=== PATIENT | female | born 1940 | race Caucasian/White ===

== ENCOUNTER 2023-05-12 14:46 | Outpatient (AMB) | payer MEDICARE, SELFPAY ==
[2023-05-12 15:04] VITALS: BP 120/60; PULSE 74; O2SAT 95; BMI 37.8
--- NOTE | 2023-05-12 15:04 | MHC.OFFVIS ---
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 The patient is an 82 year woman with a known cardiac history and chronic kidney disease who has a diagnosis of COPD. The patient has had issues with shortness of breath. She complains of shortness of breath lying flat suggesting of orthopnea. The patient also describes symptoms of shortness of breath waking up suggesting of pressure small nocturnal dyspnea. She does take diuretics and recently she has had to increase her Lasix to be able to help her with those symptoms. The patient also was given diagnosis of COPD. I did look at her PFTs that she had in January 2023 without any evidence of obstruction although she does have a mild restriction an a mild diffusion impairment. During the office visit we did go for a 6 minutes walk test. The patient did desaturate down to 93% but did not qualify for oxygen she does have a rescue inhaler but she does not see any significant improvement. At this point she may and may not have obstructive airway disease will go ahead and give her any longer acting inhaler to see if we can provide her some relief with breathing. However rest after a month she does not see relief she can stop the inhaler. Will also request an overnight oximetry to see if she needs oxygen at nighttime. And the patient will continue with rescue inhaler as needed. The patient also had a CT scan of the chest done back in 2019 which demonstrated areas of ground-glass opacities of unclear etiology. Indeed pneumonitis could be also resulting in some shortness of breath. Will plan to repeat her chest x-ray to assess for any active process. [facility] Medical History (Updated 05/12/23 @ 22:19 by Carl Osman MD) COPD (chronic obstructive pulmonary disease) CHF (congestive heart failure) Dyspnea Social History (Updated 05/12/23 @ 15:14 by MIKE Walker) Patient Tobacco Use Status: Never used Tobacco Review of Systems Const Denies fever(s) Eyes Denies change in vision ENT Reports nasal congestion Card Reports leg edema, Reports dyspnea and Reports dyspnea on exertion Resp Reports dyspnea, Reports dyspnea on exertion and Denies wheezing GI Denies abdominal pain Musc Reports abnormal gait and Reports limited range of motion Skin/Breast Denies rash Neuro Reports abnormal gait Robert/Lymph Denies lymphadenopathy Aller/Immun Denies wheezing Physical Exam Vital Signs: Last Vital Signs Pulse 74 05/12/23 15:04 BP 120/60 05/12/23 15:04 Pulse Ox 95 05/12/23 15:04 Oxygen Delivery Method Room Air 05/12/23 15:04 BMI result Body Mass Index 37.8 Const General: comfortable HEENT Head: Yes normocephalic Neck Neck: Yes supple Chest Chest palpation & inspection: normal inspection of the chest Resp Effort & Inspection: normal respiratory effort Auscultation: no rales, no rhonchi, no wheezes and diminished lung sounds Cardio Rate: regular rate Rhythm: regular rhythm Heart sounds: S1 normal heart sound present and S2 normal heart sound present GI Palpation (GI): Soft to palpation Skin General skin exam: no rashes or lesions noted Extrem General: No clubbing, No cyanosis and Yes edema Assessment & Plan Assessment & Plan (1) CHF (congestive heart failure): Code(s): I50.9 - Heart failure, unspecified Qualifiers: Heart failure type: systolic Heart failure chronicity: chronic Qualified Code(s): I50.22 - Chronic systolic (congestive) heart failure (2) Dyspnea: Code(s): R06.00 - Dyspnea, unspecified Qualifiers: Dyspnea type: dyspnea on exertion Qualified Code(s): R06.09 - Other forms of dyspnea (3) COPD (chronic obstructive pulmonary disease): Comment: no definitive obstruction on recent PFTs Code(s): J44.9 - Chronic obstructive pulmonary disease, unspecified Qualifiers: COPD type: chronic bronchitis Chronic bronchitis type: simple Qualified Code(s): J41.0 - Simple chronic bronchitis Plan CXR overnight oximetry start Bevespi BID MASOUD as needed diuresis as tolerated F/U 3-4 months Orders: Orders XR chest 2V Today I50.9 - Heart failure, unspecified, R06.00 - Dyspnea, unspecified Overnight Pulse Oximetry Today Medications: New glycopyrrolate-formoterol 9-4.8 mcg (Bevespi Aerosphere) 2 puffs inhalation Q12H 30 days 10.7 grams 11RF Coding Level of Care Code New Pt Level 4 (84422) Diagnoses Chronic systolic congestive heart failure I50.22 Heart failure type: systolic Heart failure chronicity: chronic Dyspnea on exertion R06.09 Dyspnea type: dyspnea on exertion Simple chronic bronchitis J41.0 COPD type: chronic bronchitis Chronic bronchitis type: simple Time Spent (min) 40
== END 2023-05-12 15:43 | disposition home or self-care (01) ==
PROVIDERS: PCP Internal Medicine; Referring Provider Internal Medicine; Visit Provider Hospitalist
DX: I50.22 Chronic systolic (congestive) heart failure (principal); R06.09 Other forms of dyspnea; J41.0 Simple chronic bronchitis
CPT/HCPCS: 99204

== ENCOUNTER → 2023-05-12 14:46 | Outpatient (BNVA) | payer SELFPAY | PROVIDERS: Visit Provider Hospitalist ==

== ENCOUNTER 2023-09-14 13:04 | Outpatient (AMB) | payer MEDICARE, MEDICAID, SELFPAY ==
[2023-09-14 13:13] VITALS: PULSE 69; O2SAT 94; BMI 37.7
--- NOTE | 2023-09-14 13:13 | A.OFFVIS_ITS ---
Intake Vital Signs 09/14/23 13:13 Height 5 ft 4 in Weight 219 lb 12.814 oz BMI 37.7 Pulse 69 Pulse Source Pulse Oximeter Pulse Oximetry (%) 94 Oxygen Delivery Method Room Air Intake Visit Reasons: COPD Validation Intern Required: No Allergies celecoxib [From Celebrex] Allergy (Verified 09/14/23 13:15) Palpitations ticagrelor [From Brilinta] Adverse Reaction (Severe, Verified 09/14/23 13:15) Difficulty Breathing HPI HPI Comments History of Present Illness Details The patient is an 83 year woman with a known cardiac history and chronic kidney disease who has a diagnosis of COPD. The patient has had issues with shortness of breath. She complains of shortness of breath lying flat s uggesting of orthopnea. The patient also describes symptoms of shortness of breath waking up suggesting of pressure small nocturnal dyspnea. She does take diuretics and recently she has had to increase her Lasix to be able to help her with those symptoms. The patient also was given diagnosis of COPD. I did look at her PFTs that she had in January 2023 without any evidence of obstruction although she does have a mild restriction an a mild diffusion impairment. During the office visit we did go for a 6 minutes walk test. The patient did desaturate down to 93% but did not qualify for oxygen she does have a rescue inhaler but she does not see any significant improvement. At this point she may and may not have obstructive airway disease will go ahead and give her any longer acting inhaler to see if we can provide her some relief with breathing. However rest after a month she does not see relief she can stop the inhaler. Will also request an overnight oximetry to see if she needs oxygen at nighttime. And the patient will continue with rescue inhaler as needed. The patient also had a CT scan of the chest done back in 2019 which demonstrated areas of ground- glass opacities of unclear etiology. Indeed pneumonitis could be also resulting in some shortness of breath. Will plan to repeat her chest x-ray to assess for any active process. 09/14/2023 the patient is here for pulmon justin the patient is still distant productive cough. The mucus is whitish in color. Moderate severity. She does have issues with urinary incontinence specially when she is coughing so therefore makes it very hard for her. We did get a sputum culture in the office consent to the laboratory for further analysis. The patient also states that she does cough while eating therefore she may have a component of microaspiration. She has been under Bevespi inhaler but has not been very helpful for her. We talked about considering adding inhaled corticosteroid to help her with the chronic bronchitis component. We did review her last chest x- ray that she had back in the fall demonstrating some interstitial changes. Her daughter is with her. They are concerned there may be a familial component. Because her daughter is also having respiratory issues and her sister also had respiratory issues. At this point will going to start her on azithromycin for her chronic bronchitis. She will take it 3 times a week. I did encourage her to get an EKG after starting the medication to make sure that her cardiac intervals are within normal limits. She will continue taking the medication for 6-8 weeks. Will follow-up afterwards. If she continues to have symptoms she can always call we can add an inhaled corticosteroid to her regimen. In the meantime we did send sputum culture and will wait for the results. As far as chest PT will provide her with an Acapella valve for her to be able to cough her secretions easier. [facility] Medical History (Updated 09/14/23 @ 20:56 by Carl Osman MD) COPD (chronic obstructive pulmonary disease) CHF (congestive heart failure) Dyspnea Social History (Updated 05/12/23 @ 15:14 by MIKE Walker) Patient Tobacco Use Status: Never used Tobacco Review of Systems Const Denies fever(s) Eyes Denies change in vision ENT Reports nasal congestion Card Reports leg edema and Reports dyspnea on exertion Resp Reports chest congestion, Reports cough, Reports dyspnea on exertion and Denies wheezing GI Denies abdominal pain Musc Reports abnormal gait and Reports limited range of motion Skin/Breast Denies rash Neuro Reports abnormal gait Robert/Lymph Denies lymphadenopathy Aller/Immun Denies wheezing Physical Exam Vital Signs: Last Vital Signs Pulse 69 09/14/23 13:13 Pulse Ox 94 09/14/23 13:13 Oxygen Delivery Method Room Air 09/14/23 13:13 BMI result Body Mass Index 37.7 Const General: comfortable HEENT Head: Yes normocephalic Neck Neck: Yes supple Chest Chest palpation & inspection: normal inspection of the chest Resp Effort & Inspection: normal respiratory effort Auscultation: no rales, no rhonchi, no wheezes and diminished lung sounds Cardio Rate: regular rate Rhythm: regular rhythm Heart sounds: S1 normal heart sound present and S2 normal heart sound present GI Palpation (GI): Soft to palpation Skin General skin exam: no rashes or lesions noted Extrem General: No clubbing, No cyanosis and Yes edema Assessment & Plan Assessment & Plan (1) Dyspnea: Code(s): R06.00 - Dyspnea, unspecified Qualifiers: Dyspnea type: dyspnea on exertion Qualified Code(s): R06.09 - Other forms of dyspnea (2) COPD (chronic obstructive pulmonary disease): Comment: no definitive obstruction on recent PFTs Code(s): J44.9 - Chronic obstructive pulmonary disease, unspecified Qualifiers: COPD type: chronic bronchitis Chronic bronchitis type: mixed simple and mucopurulent Qualified Code(s): J41.8 - Mixed simple and mucopurulent chronic bronchitis (3) CHF (congestive heart failure): Code(s): I50.9 - Heart failure, unspecified Qualifiers: Heart failure chronicity: chronic Heart failure type: systolic Qualified Code(s): I50.22 - Chronic systolic (congestive) heart failure Plan continue Bevespi BID consider adding ICS start Azithromycin MWF EKG while on macrolide therapy MASOUD as needed diuresis as tolerated F/U 2 months Orders: Orders Sputum Cult + Gram stain Today J44.9 - Chronic obstructive pulmonary disease, unspecified ECG 12 lead EKG Today J44.9 - Chronic obstructive pulmonary disease, unspecified Medications: New azithromycin Take 1 tablet on Thursday/Thursday/Thursday 250 mg PO 3XW 28 days 12 tabs 1RF K21.9 - Gastro-esophageal reflux disease without esophagitis Coding Level of Care Code Est Pt Level 4 (21059) Diagnoses Dyspnea on exertion R06.09 Dyspnea type: dyspnea on exertion Mixed simple and mucopurulent chronic bronchitis J41.8 COPD type: chronic bronchitis Chronic bronchitis type: mixed simple and mucopurulent Chronic systolic congestive heart failure I50.22 Heart failure chronicity: chronic Heart failure type: systolic Time Spent (min) 18
== END 2023-09-14 13:48 | disposition home or self-care (01) ==
PROVIDERS: PCP Internal Medicine; Visit Provider Hospitalist
DX: R06.09 Other forms of dyspnea (principal); J41.8 Mixed simple and mucopurulent chronic bronchitis; I50.22 Chronic systolic (congestive) heart failure
CPT/HCPCS: 99214

== ENCOUNTER 2023-09-14 13:04 | Outpatient (REF) | payer MEDICARE, SELFPAY | END 2023-09-14 13:05 | disposition home or self-care (01) | LOC: HO.LNP 13:04 | PROVIDERS: PCP Internal Medicine; Visit Provider Hospitalist | DX: J44.9 Chronic obstructive pulmonary disease, unspecified (principal); R06.09 Other forms of dyspnea; I50.22 Chronic systolic (congestive) heart failure | CPT/HCPCS: 87070; 87205; 99212 ==

== ENCOUNTER → 2023-09-30 11:06 | Outpatient (REF) | payer MEDICARE, MEDICAID, SELFPAY ==
--- NOTE | 2023-09-30 11:12 | ECG_ITS ---
Test Reason : COPD Blood Pressure : / mmHG Vent. Rate : 071 BPM Atrial Rate : 071 BPM P-R Int : 208 ms QRS Dur : 102 ms QT Int : 464 ms P-R-T Axes : 090 010 071 degrees QTc Int : 504 ms Normal sinus rhythm Prolonged QT Abnormal ECG No previous ECGs available Referred By: Carl Osman Electronically Signed By:RUFINO GILBERT
== END ==
LOC: HO.CARD 11:06
PROVIDERS: PCP Internal Medicine; Visit Provider Hospitalist
DX: J44.9 Chronic obstructive pulmonary disease, unspecified (principal)
CPT/HCPCS: 93005

== ENCOUNTER → 2023-09-30 11:12 | Outpatient (BNV) | payer MEDICARE, MEDICAID, SELFPAY | PROVIDERS: PCP Internal Medicine; Visit Provider Internal Medicine | DX: J44.9 Chronic obstructive pulmonary disease, unspecified (principal) | CPT/HCPCS: 93010 ==

== ENCOUNTER 2023-11-26 09:24 | Outpatient (AMB) | payer MEDICARE, SELFPAY ==
[2023-11-26 09:28] VITALS: PULSE 77; O2SAT 96; BMI 36.7
--- NOTE | 2023-11-26 09:28 | MHC.OFFVIS ---
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 The patient has had issues with shortness of breath. She complains of shortness of breath lying flat suggesting of orthopnea. The patient also describes symptoms of shortness of breath waking up suggesting of pressure small nocturnal dyspnea. She does take diuretics and recently she has had to increase her Lasix to be able to help her with those symptoms. The patient also was given diagnosis of COPD. I did look at her PFTs that she had in January 2023 without any evidence of obstruction although she does have a mild restriction an a mild diffusion impairment. During the office visit we did go for a 6 minutes walk test. The patient did desaturate down to 93% but did not qualify for oxygen she does have a rescue inhaler but she does not see any significant improvement. At this point she may and may not have obstructive airway disease will go ahead and give her any longer acting inhaler to see if we can provide her some relief with breathing. However rest after a month she does not see relief she can stop the inhaler. Will also request an overnight oximetry to see if she needs oxygen at nighttime. And the patient will continue with rescue inhaler as needed. The patient also had a CT scan of the chest done back in 2019 which demonstrated areas of ground-glass opacities of unclear etiology. Indeed pneumonitis could be also resulting in some shortness of breath. Will plan to repeat her chest x-ray to assess for any active process. 09/14/2023 the patient is here for pulmonary the patient is still distant productive cough. The mucus is whitish in color. Moderate severity. She does have issues with urinary incontinence specially when she is coughing so therefore makes it very hard for her. We did get a sputum culture in the office consent to the laboratory for further analysis. The patient also states that she does cough while eating therefore she may have a component of microaspiration. She has been under Bevespi inhaler but has not been very helpful for her. We talked about considering adding inhaled corticosteroid to help her with the chronic bronchitis component. We did review her last chest x-ray that she had back in the fall demonstrating some interstitial changes. Her daughter is with her. They are concerned there may be a familial component. Because her daughter is also having respiratory issues and her sister also had respiratory issues. At this point will going to start her on azithromycin for her chronic bronchitis. She will take it 3 times a week. I did encourage her to get an EKG after starting the medication to make sure that her cardiac intervals are within normal limits. She will continue taking the medication for 6-8 weeks. Will follow-up afterwards. If she continues to have symptoms she can always call we can add an inhaled corticosteroid to her regimen. In the meantime we did send sputum culture and will wait for the results. As far as chest PT will provide her with an Acapella valve for her to be able to cough her secretions easier. 11/26/2023 the patient is here for a pulmonary follow-up visit. Recently she was hospitalized at [facility]. Apparently she was volume overloaded was treated for heart failure. In addition to that she was treated for COPD exacerbation. While she was there she did have a CTA back on 11/09/2023 which was personally by me. She had subcentimeter pulmonary nodules in addition to other areas of atelectasis. The patient also had an echocardiogram demonstrating moderate diastolic dysfunction. Explained her that that likely resulted in congestive heart failure. Currently she is monitoring closely her weight on a daily basis. She does have protocol she gained some weight call her doctor. She is also on diuretics which is reassuring. Overall she has doing a lot better with her salt intake. Reason why she is doing okay. We did go for brief walking oximetry the patient did desaturate down to the low 90s but she did not qualify for oxygen. She was supposed to have an overnight oximetry but she never had it. I will reorder this time will call her daughter. [facility] Medical History (Updated 11/26/23 @ 19:15 by Carl Osman MD) Pulmonary nodule COPD (chronic obstructive pulmonary disease) CHF (congestive heart failure) Dyspnea Social History (Updated 05/12/23 @ 15:14 by MIKE Walker) Patient Tobacco Use Status: Never used Tobacco Review of Systems Const Denies fever(s) Eyes Denies change in vision ENT Reports nasal congestion Card Reports leg edema and Reports dyspnea on exertion Resp Reports cough, Reports dyspnea on exertion and Denies wheezing GI Denies abdominal pain Musc Reports abnormal gait and Reports limited range of motion Skin/Breast Denies rash Neuro Reports abnormal gait Robert/Lymph Denies lymphadenopathy Aller/Immun Denies wheezing Physical Exam Vital Signs: Last Vital Signs Pulse 77 11/26/23 09:28 Pulse Ox 96 11/26/23 09:28 Oxygen Delivery Method Room Air 11/26/23 09:28 BMI result Body Mass Index 36.7 Const General: comfortable HEENT Head: Yes normocephalic Neck Neck: Yes supple Chest Chest palpation & inspection: normal inspection of the chest Resp Effort & Inspection: normal respiratory effort Auscultation: no rales, no rhonchi, no wheezes and diminished lung sounds Cardio Rate: regular rate Rhythm: regular rhythm Heart sounds: S1 normal heart sound present and S2 normal heart sound present GI Palpation (GI): Soft to palpation Skin General skin exam: no rashes or lesions noted Extrem General: No clubbing, No cyanosis and Yes edema Assessment & Plan Assessment & Plan (1) COPD (chronic obstructive pulmonary disease): Comment: no definitive obstruction on recent PFTs Code(s): J44.9 - Chronic obstructive pulmonary disease, unspecified Category: Medical Qualifiers: COPD type: chronic bronchitis Chronic bronchitis type: mixed simple and mucopurulent Qualified Code(s): J41.8 - Mixed simple and mucopurulent chronic bronchitis (2) Pulmonary nodule: Code(s): R91.1 - Solitary pulmonary nodule Category: Medical (3) CHF (congestive heart failure): Code(s): I50.9 - Heart failure, unspecified Category: Medical Qualifiers: Heart failure type: systolic Heart failure chronicity: chronic Qualified Code(s): I50.22 - Chronic systolic (congestive) heart failure (4) Dyspnea: Code(s): R06.00 - Dyspnea, unspecified Category: Medical Qualifiers: Dyspnea type: dyspnea on exertion Qualified Code(s): R06.09 - Other forms of dyspnea Plan continue Bevespi BID consider adding ICS Overnight oximetry on RA MASOUD as needed diuresis as tolerated daily weight We will discuss further imaging for the subcentemeter nodule ([facility] CT chest 11/2023) during the next visit. F/U 6 months Orders: Orders Overnight Pulse Oximetry Today J41.8 - Mixed simple and mucopurulent chronic bronchitis Coding Level of Care Code Est Pt Level 4 (13058) Diagnoses Mixed simple and mucopurulent chronic bronchitis J41.8 COPD type: chronic bronchitis Chronic bronchitis type: mixed simple and mucopurulent Pulmonary nodule R91.1 Chronic systolic congestive heart failure I50.22 Heart failure type: systolic Heart failure chronicity: chronic Dyspnea on exertion R06.09 Dyspnea type: dyspnea on exertion Time Spent (min) 17
== END 2023-11-26 10:02 | disposition home or self-care (01) ==
PROVIDERS: PCP Internal Medicine; Visit Provider Hospitalist
DX: J41.8 Mixed simple and mucopurulent chronic bronchitis (principal); R91.1 Solitary pulmonary nodule; I50.22 Chronic systolic (congestive) heart failure; R06.09 Other forms of dyspnea
CPT/HCPCS: 99214

== ENCOUNTER → 2023-11-26 09:24 | Outpatient (BNVA) | payer MEDICARE, SELFPAY | PROVIDERS: PCP Internal Medicine; Visit Provider Hospitalist | DX: J41.8 Mixed simple and mucopurulent chronic bronchitis (principal); R91.1 Solitary pulmonary nodule; I50.22 Chronic systolic (congestive) heart failure; R06.09 Other forms of dyspnea | CPT/HCPCS: 99212 ==

== ENCOUNTER 2024-05-30 15:27 | Outpatient (AMB) | payer MEDICARE, MEDICAID, SELFPAY ==
[2024-05-30 15:43] VITALS: BP 118/70; PULSE 76; O2SAT 94; BMI 37.4
--- NOTE | 2024-05-30 15:43 | A.OFFVIS_ITS ---
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 The patient has had issues with shortness of breath. She complains of shortness of breath lying flat suggesting of orthopnea. The patient also describes symptoms of shortness of breath waking up suggesting of pressure small nocturnal dyspnea. She does take diuretics and recently she has had to increase her Lasix to be able to help her with those symptoms. The patient also was given diagnosis of COPD. I did look at her PFTs that she had in January 2023 without any evidence of obstruction although she does have a mild restriction an a mild diffusion impairment. During the office visit we did go for a 6 minutes walk test. The patient did desaturate down to 93% but did not qualify for oxygen she does have a rescue inhaler but she does not see any significant improvement. At this point she may and may not have obstructive airway disease will go ahead and give her any longer acting inhaler to see if we can provide her some relief with breathing. However rest after a month she does not see relief she can stop the inhaler. Will also request an overnight oximetry to see if she needs oxygen at nighttime. And the patient will continue with rescue inhaler as needed. The patient also had a CT scan of the chest done back in 2019 which demonstrated areas of ground-glass opacities of unclear etiology. Indeed pneumonitis could be also resulting in some shortness of breath. Will plan to repeat her chest x-ray to assess for any active process. 09/14/2023 the patient is here for pulmonary the patient is still distant productive cough. The mucus is whitish in color. Moderate severity. She does have issues with urinary incontinence specially when she is coughing so therefore makes it very hard for her. We did get a sputum culture in the office consent to the laboratory for further analysis. The patient also states that she does cough while eating therefore she may have a component of microaspiration. She has been under Bevespi inhaler but has not been very helpful for her. We talked about considering adding inhaled corticosteroid to help her with the chronic bronchitis component. We did review her last chest x- ray that she had back in the fall demonstrating some interstitial changes. Her daughter is with her. They are concerned there may be a familial component. Because her daughter is also having respiratory issues and her sister also had respiratory issues. At this point will going to start her on azithromycin for her chronic bronchitis. She will take it 3 times a week. I did encourage her to get an EKG after starting the medication to make sure that her cardiac intervals are within normal limits. She will continue taking the medication for 6-8 weeks. Will follow-up afterwards. If she continues to have symptoms she can always call we can add an inhaled corticosteroid to her regimen. In the meantime we did send sputum culture and will wait for the results. As far as chest PT will provide her with an Acapella valve for her to be able to cough her secretions easier. 11/26/2023 the patient is here for a pulmonary follow-up visit. Recently she was hospitalized at [facility]. Apparently she was volume overloaded was treated for heart failure. In addition to that she was treated for COPD exacerbation. While she was there she did have a CTA back on 11/09/2023 which was personally by me. She had subcentimeter pulmonary nodules in addition to other areas of atelectasis. The patient also had an echocardiogram demonstrating moderate diastolic dysfunction. Explained her that that likely resulted in congestive heart failure. Currently she is monitoring closely her weight on a daily basis. She does have protocol she gained some weight call her doctor. She is also on diuretics which is reassuring. Overall she has doing a lot better with her salt intake. Reason why she is doing okay. We did go for brief walking oximetry the patient did desaturate down to the low 90s but she did not qualify for oxygen. She was supposed to have an overnight oximetry but she never had it. I will reorder this time will call her daughter. 05/30/2024 the patient is here for a pulmonary follow-up visit. The patient overall has been doing okay. She has been complaining of worsening cough for the last 2 weeks. Positive sick contacts. She is also having some dyspnea on exertion. The patient also has shortness of breath and she wakes up at nighttime. She did have an overnight oximetry back in December that demonstrates sig nificant hypoxia. I believe the patient did not want have any oxygen. Will go ahead and repeat the oxygen test if she does again requalify for oxygen at this point will emphasize the need for the oxygen. I am hopeful that she would be agreeable to it. The patient does continue with respiratory medicine but does not feel like the Bevespi is helping. She does not want to do any powder inhalers will switch over to Breztri. The patient will continue to use the Breztri 2 puffs twice a day. The patient also start a course of antibiotics treated for a bout of bronchitis specially with sick contacts. If the patient is no better she will call for an earlier assessment. Also to note she had a CT scan of the chest back in 11/21/2023 [facility] which I personally reviewed. The patient on subcentimeter pulmonary nodules that are stable. She also has some areas of mosaic pattern suggesting small airways disease. Otherwise the patient is without any other complaints. FORMERLY [facility] Medical History (Updated 11/26/23 @ 19:15 by Carl Osman MD) Pulmonary nodule COPD (chronic obstructive pulmonary disease) CHF (congestive heart failure) Dyspnea Social History (Updated 05/12/23 @ 15:14 by MIKE Walker) Patient Tobacco Use Status: Never used Tobacco Review of Systems Const Denies fever(s) Eyes Denies change in vision ENT Reports nasal congestion Card Reports leg edema and Reports dyspnea on exertion Resp Reports cough, Reports dyspnea on exertion and Denies wheezing GI Denies abdominal pain Musc Reports abnormal gait and Reports limited range of motion Skin/Breast Denies rash Neuro Reports abnormal gait Robert/Lymph Denies lymphadenopathy Aller/Immun Denies wheezing Physical Exam Vital Signs: Last Vital Signs Pulse 76 05/30/24 15:43 BP 118/70 05/30/24 15:43 Pulse Ox 94 05/30/24 15:43 Oxygen Delivery Method Room Air 05/30/24 15:43 BMI result Body Mass Index 37.4 Const General: comfortable HEENT Head: Yes normocephalic Neck Neck: Yes supple Chest Chest palpation & inspection: normal inspection of the chest Resp Effort & Inspection: normal respiratory effort Auscultation: no rales, no rhonchi, no wheezes and diminished lung sounds Cardio Rate: regular rate Rhythm: regular rhythm Heart sounds: S1 normal heart sound present and S2 normal heart sound present GI Palpation (GI): Soft to palpation Skin General skin exam: no rashes or lesions noted Extrem General: No clubbing, No cyanosis and Yes edema Assessment & Plan Assessment & Plan (1) COPD (chronic obstructive pulmonary disease): Comment: no definitive obstruction on recent PFTs Code(s): J44.9 - Chronic obstructive pulmonary disease, unspecified Category: Medical Qualifiers: COPD type: chronic bronchitis Chronic bronchitis type: mixed simple and mucopurulent Qualified Code(s): J41.8 - Mixed simple and mucopurulent chronic bronchitis (2) Pulmonary nodule: Code(s): R91.1 - Solitary pulmonary nodule Category: Medical (3) CHF (congestive heart failure): Code(s): I50.9 - Heart failure, unspecified Category: Medical Qualifiers: Heart failure chronicity: chronic Heart failure type: systolic Qualified Code(s): I50.22 - Chronic systolic (congestive) heart failure (4) Dyspnea: Code(s): R06.00 - Dyspnea, unspecified Category: Medical Qualifiers: Dyspnea type: dyspnea on exertion Qualified Code(s): R06.09 - Other forms of dyspnea Plan stop Bevespi BID start Breztri start Azithromycin Overnight oximetry on RA MASOUD as needed diuresis as tolerated daily weight F/U 6 months Orders: Orders Overnight Pulse Oximetry Today J41.8 - Mixed simple and mucopurulent chronic bronchitis Medications: New mlcpxqszex-obwybvwi-zcsvhjcyep 160-9-4.8 mcg/actuation (Breztri Aerosphere) 2 inhalations inhalation BID 10.7 grams 11RF azithromycin 500 mg PO DAILY 5 tabs 0RF 5 days Coding Level of Care Code Est Pt Level 4 (52380) Diagnoses Mixed simple and mucopurulent chronic bronchitis J41.8 COPD type: chronic bronchitis Chronic bronchitis type: mixed simple and mucopurulent Pulmonary nodule R91.1 Chronic systolic congestive heart failure I50.22 Heart failure chronicity: chronic Heart failure type: systolic Dyspnea on exertion R06.09 Dyspnea type: dyspnea on exertion Time Spent (min) 17
== END 2024-05-30 16:06 | disposition home or self-care (01) ==
PROVIDERS: PCP Internal Medicine; Visit Provider Hospitalist
DX: J41.8 Mixed simple and mucopurulent chronic bronchitis (principal); R91.1 Solitary pulmonary nodule; I50.22 Chronic systolic (congestive) heart failure; R06.09 Other forms of dyspnea
CPT/HCPCS: 99214

== ENCOUNTER → 2024-05-30 15:27 | Outpatient (BNVA) | payer MEDICARE, SELFPAY | PROVIDERS: PCP Internal Medicine; Visit Provider Hospitalist | DX: J41.8 Mixed simple and mucopurulent chronic bronchitis (principal); R91.1 Solitary pulmonary nodule; I50.22 Chronic systolic (congestive) heart failure; R06.09 Other forms of dyspnea | CPT/HCPCS: 99212 ==

== ENCOUNTER 2024-10-03 15:17 | Outpatient (AMB) | payer MEDICAID, SELFPAY ==
[2024-10-03 15:21] VITALS: BP 130/78; PULSE 80; O2SAT 92; BMI 38.2
--- NOTE | 2024-10-03 15:21 | A.OFFVIS_ITS ---
Vital Signs 10/03/24 15:21 Height 5 ft 4 in Weight 222 lb 10.67 oz BMI 38.2 BP 130/78 Blood Pressure Location Rt brachial Position Sitting Pulse 80 Pulse Source Pulse Oximeter Pulse Oximetry (%) 92 Oxygen Delivery Method Room Air Intake Visit Reasons: COPD Allergies celecoxib [From Celebrex] Allergy (Verified 10/03/24 15:25) Palpitations ticagrelor [From Brilinta] Adverse Reaction (Severe, Verified 10/03/24 15:25) Difficulty Breathing HPI Comments Details: The patient is an 84 year woman with a known cardiac history and chronic kidney disease who has a diagnosis of COPD. The patient has had issues with shortness of breath. She complains of shortness of breath lying flat suggesting of orthopnea. The patient also describes symptoms of shortness of breath waking up suggesting of pressure small nocturnal dyspnea. She does take diuretics and recently she has had to increase her Lasix to be able to help her with those symptoms. The patient also was given diagnosis of COPD. I did look at her PFTs that she had in January 2023 without any evidence of obstruction although she does have a mild restriction an a mild diffusion impairment. During the office visit we did go for a 6 minutes walk test. The patient did desaturate down to 93% but did not qualify for oxygen she does have a rescue inhaler but she does not see any significant improvement. At this point she may and may not have obstructive airway disease will go ahead and give her any longer acting inhaler to see if we can provide her some relief with breathing. However rest after a month she does not see relief she can stop the inhaler. Will also request an overnight oximetry to see if she needs oxygen at nighttime. And the patient will continue with rescue inhaler as needed. The patient also had a CT scan of the chest done back in 2019 which demonstrated areas of ground-glass opacities of unclear etiology. Indeed pneumonitis could be also resulting in some shortness of breath. Will plan to repeat her chest x-ray to assess for any active process. 09/14/2023 the patient is here for pulmonary the patient is still distant produ ctive cough. The mucus is whitish in color. Moderate severity. She does have issues with urinary incontinence specially when she is coughing so therefore makes it very hard for her. We did get a sputum culture in the office consent to the laboratory for further analysis. The patient also states that she does cough while eating therefore she may have a component of microaspiration. She has been under Bevespi inhaler but has not been very helpful for her. We talked about considering adding inhaled corticosteroid to help her with the chronic bronchitis component. We did review her last chest x-ray that she had back in the fall demonstrating some interstitial changes. Her daughter is with her. They are concerned there may be a familial component. Because her daughter is also having respiratory issues and her sister also had respiratory issues. At this point will going to start her on azithromycin for her chronic bronchitis. She will take it 3 times a week. I did encourage her to get an EKG after starting the medication to make sure that her cardiac intervals are within normal limits. She will continue taking the medication for 6-8 weeks. Will follow-up afterwards. If she continues to have symptoms she can always call we can add an inhaled corticosteroid to her regimen. In the meantime we did send sputum culture and will wait for the results. As far as chest PT will provide her with an Acapella valve for her to be able to cough her secretions easier. 11/26/2023 the patient is here for a pulmonary follow-up visit. Recently she was hospitalized at [facility]. Apparently she was volume overloaded was treated for heart failure. In addition to that she was treated for COPD exacerbation. While she was there she did have a CTA back on 11/09/2023 which was personally by me. She had subcentimeter pulmonary nodules in addition to other areas of atelectasis. The patient also had an echocardiogram demonstrating moderate diastolic dysfunction. Explained her that that likely resulted in congestive heart failure. Currently she is monitoring closely her weight on a daily basis. She does have protocol she gained some weight call her doctor. She is also on diuretics which is reassuring. Overall she has doing a lot better with her salt intake. Reason why she is doing okay. We did go for brief walking oximetry the patient did desaturate down to the low 90s but she did not qualify for oxygen. She was supposed to have an overnight oximetry but she never had it. I will reorder this time will call her daughter. 05/30/2024 the patient is here for a pulmonary follow-up visit. The patient overall has been doing okay. She has been complaining of worsening cough for the last 2 weeks. Positive sick contacts. She is also having some dyspnea on exertion. The patient also has shortness of breath and she wakes up at nighttime. She did have an overnight oximetry back in December that demonstrates significant hypoxia. I believe the patient did not want have any oxygen. Will go ahead and repeat the oxygen test if she does again requalify for oxygen at this point will emphasize the need for the oxygen. I am hopeful that she would be agreeable to it. The patient does continue with respiratory medicine but does not feel like the Bevespi is helping. She does not want to do any powder inhalers will switch over to Breztri. The patient will continue to use the Breztri 2 puffs twice a day. The patient also start a course of antibiotics treated for a bout of bronchitis specially with sick contacts. If the patient is no better she will call for an earlier assessment. Also to note she had a CT scan of the chest back in 11/21/2023 [facility] which I personally reviewed. The patient on subcentimeter pulmonary nodules that are stable. She also has some areas of mosaic pattern suggesting small airways disease. Otherwise the patient is without any other complaints. 10/03/2024 the patient is here for a pulmonary follow-up visit. She blue. He was briefly admitted to [facility]. Subsequently discharged. She has been coughing now for the last few weeks. Having some chest tightness and chest congestion. She has been using her rescue inhaler also her rescue inhaler often. Still only partial relief. She does have significant rhonchi and wheezing on exam. Will go ahead and treated with doxycycline for postviral bacterial lower respiratory infection. And also she will need some prednisone. I will give her low dose because of she her diabetes. Although if she continues to have symptoms she can always call and we can send or higher dose. She needs a nebulizer we did provide her with a nebulizer treatment in the office with Rolan and she did very well and open up her lungs nicely. I did request a nebulizer for her. Unfortunately we did not have any nebulizers on hand. Will follow-up in 3 months. If she has any worsening symptoms she will call for an earlier assessment. In the meantime the patient continues use the oxygen at nighttime. The oxygen therapy has been affecting beneficial. [facility] Medical History (Updated 10/03/24 @ 21:25 by Carl Osman MD) Nocturnal hypoxia Pulmonary nodule COPD (chronic obstructive pulmonary disease) CHF (congestive heart failure) Dyspnea Social History Patient Tobacco Use Status: Never used Tobacco Review of Systems Const Denies fever(s) Eyes Denies change in vision ENT Reports nasal congestion Card Reports leg edema and Reports dyspnea on exertion Resp Reports chest congestion, Reports cough, Reports dyspnea on exertion and Reports wheezing GI Denies abdominal pain Musc Reports abnormal gait and Reports limited range of motion Skin/Breast Denies rash Neuro Reports abnormal gait Robert/Lymph Denies lymphadenopathy Aller/Immun Reports wheezing Physical Exam Vital Signs: Last Vital Signs Pulse 80 10/03/24 15:21 BP 130/78 10/03/24 15:21 Pulse Ox 92 10/03/24 15:21 Oxygen Delivery Method Room Air 10/03/24 15:21 BMI result Body Mass Index 38.2 Const General: comfortable HEENT Head: Yes normocephalic Neck Neck: Yes supple Chest Chest palpation & inspection: normal inspection of the chest Resp Effort & Inspection: normal respiratory effort and prolonged expiratory phase Auscultation: no rales, rhonchi, wheezes and diminished lung sounds Cardio Rate: regular rate Rhythm: regular rhythm Heart sounds: S1 normal heart sound present and S2 normal heart sound present GI Palpation (GI): Soft to palpation Skin General skin exam: no rashes or lesions noted Extrem General: No clubbing, No cyanosis and Yes edema Assessment & Plan Assessment & Plan (1) COPD (chronic obstructive pulmonary disease): Comment: no definitive obstruction on recent PFTs Code(s): J44.9 - Chronic obstructive pulmonary disease, unspecified Category: Medical Qualifiers: COPD type: COPD with acute exacerbation Qualified Code(s): J44.1 - Chronic obstructive pulmonary disease with (acute) exacerbation (2) Pulmonary nodule: Code(s): R91.1 - Solitary pulmonary nodule Category: Medical (3) CHF (congestive heart failure): Code(s): I50.9 - Heart failure, unspecified Category: Medical Qualifiers: Heart failure chronicity: chronic Heart failure type: systolic Qualified Code(s): I50.22 - Chronic systolic (congestive) heart failure (4) Dyspnea: Code(s): R06.00 - Dyspnea, unspecified Category: Medical Qualifiers: Dyspnea type: dyspnea on exertion Qualified Code(s): R06.09 - Other forms of dyspnea (5) Nocturnal hypoxia: Code(s): G47.34 - Idiopathic sleep related nonobstructive alveolar hypoventilation Category: Medical Plan start Doxycycline start Prednisone Requesting a nebulizer for albuterol continue Breztri MASOUD continue oxygen supplementation MASOUD as needed diuresis as tolerated daily weight F/U 3 months Medications: New doxycycline hyclate 100 mg PO BID 20 caps 0RF 10 days prednisone PO daily; Take 1 tab twice a day x 5 days, then 1 tab daily x 5 days 15 tabs 0RF 10 days albuterol sulfate 2.5 mg (3 mL) inhalation Q6H PRN 180 mL 11RF shortness of breath or wheezing 30 days doxycycline hyclate 100 mg PO BID 20 caps 0RF 10 days Coding Level of Care Code Est Pt Level 4 (84711) Complex EM visit Add On G2211 Diagnoses Chronic obstructive pulmonary disease with acute exacerbation J44.1 COPD type: COPD with acute exacerbation Pulmonary nodule R91.1 Chronic systolic congestive heart failure I50.22 Heart failure chronicity: chronic Heart failure type: systolic Dyspnea on exertion R06.09 Dyspnea type: dyspnea on exertion Nocturnal hypoxia G47.34 Time Spent (min) 17
== END 2024-10-03 16:14 | disposition home or self-care (01) ==
PROVIDERS: PCP Internal Medicine; Visit Provider Hospitalist
DX: J44.1 Chronic obstructive pulmonary disease with (acute) exacerbation (principal); R91.1 Solitary pulmonary nodule; I50.22 Chronic systolic (congestive) heart failure; R06.09 Other forms of dyspnea; G47.34 Idiopathic sleep related nonobstructive alveolar hypoventilation
CPT/HCPCS: 99214

== ENCOUNTER → 2024-10-03 15:17 | Outpatient (BNVA) | payer MEDICAID, SELFPAY | PROVIDERS: PCP Internal Medicine; Visit Provider Hospitalist | DX: J44.1 Chronic obstructive pulmonary disease with (acute) exacerbation (principal); R06.09 Other forms of dyspnea; R91.1 Solitary pulmonary nodule; G47.34 Idiopathic sleep related nonobstructive alveolar hypoventilation; I50.22 Chronic systolic (congestive) heart failure | CPT/HCPCS: 99212 ==

== ENCOUNTER 2025-01-02 15:35 | Outpatient (REF) | payer BC, MEDICAID, SELFPAY ==
[2025-01-02 16:48] LABS: MANUAL DIFF FLAG NO
[2025-01-02 17:07] LABS: Basophils Percent Auto 0.6 % (0-2); Eosinophils Absolute Auto 0.1 X10*3/uL (0.0-0.4); Eosinophils Percent Auto 1.6 % (0-4); Hematocrit 25.6 % (37.0-47.0); Imm Gran Abs Auto 0.04 X10*3/uL (0.00-0.03); Imm Gran Pct Auto 0.6 % (0.0-0.4); Lymphocytes Absolute Auto 1.3 X10*3/uL (1.2-4.9); Lymphocytes Percent Auto 19.8 % (20-40); Mean Corpuscular HGB Conc 27.3 g/dl (31.0-35.0); Mean Corpuscular Hemoglobin 21.5 pg (27.0-33.0); Mean Corpuscular Volume 78.8 fL (80.0-98.0); Mean Platelet Volume 11.4 fL (9.4-12.3); Monocytes Absolute Auto 0.7 X10*3/uL (0.1-1.2); Monocytes Percent Auto 9.9 % (2-11); NRBC Pct Auto 0.3 /100WBC (0.0-0.2); Neutrophils Absolute Auto 4.6 x10*3/uL (2.0-8.3); Neutrophils Percent Auto 67.5 % (45-73); Platelet Count 125 X10*3/uL (160-400); Red Blood Count 3.25 X10*6/uL (4.20-5.50); Red Cell Distribution Width 17.8 % (11.0-16.0); White Blood Count 6.8 X10*3/uL (4.8-10.8)
[2025-01-02 17:29] LABS: Anion Gap 14 (12-20); Blood Urea Nitrogen 37 mg/dL (9-16); Calcium 8.8 mg/dL (8.4-10.2); Carbon Dioxide 29 mmol/L (22-29); Chloride 103 mmol/L (96-108); Estimated Glomerular Filt Rate 30; Glucose Random 125 mg/dL (60-115); Potassium 3.9 mmol/L (3.3-5.1); Sodium 142 mmol/L (135-145)
[2025-01-02 17:40] LABS: Troponin-I High Sensitivity 14.9 ng/L (<3.5-17.0)
== END 2025-01-02 15:36 | disposition home or self-care (01) ==
LOC: HO.LAB 15:35
PROVIDERS: PCP Internal Medicine; Visit Provider Hospitalist
DX: J44.9 Chronic obstructive pulmonary disease, unspecified (principal); R07.89 Other chest pain; R91.1 Solitary pulmonary nodule; I50.22 Chronic systolic (congestive) heart failure; R06.09 Other forms of dyspnea; G47.34 Idiopathic sleep related nonobstructive alveolar hypoventilation; D50.8 Other iron deficiency anemias; I95.9 Hypotension, unspecified; I26.99 Other pulmonary embolism without acute cor pulmonale
CPT/HCPCS: 36415; 80048; 84484; 85025; 86850; 86900; 86901; 99212

== ENCOUNTER 2025-01-02 15:35 | Outpatient (AMB) | payer MEDICAID, SELFPAY ==
--- NOTE | 2025-01-02 15:38 | MHC.OFFVIS ---
Vital Signs 01/02/25 15:39 Height 5 ft 4 in BP 90/46 L Blood Pressure Location Rt brachial Position Sitting Pulse 84 Pulse Source Pulse Oximeter Pulse Oximetry (%) 97 Oxygen Delivery Method Room Air Intake Visit Reasons: COPD Extension Agent Required: No Accompanied by: Daughter Allergies celecoxib [From Celebrex] Allergy (Verified 01/02/25 15:45) Palpitations ticagrelor [From Brilinta] Adverse Reaction (Severe, Verified 01/02/25 15:45) Difficulty Breathing HPI Comments Details: The patient is an 84 year woman with a known cardiac history and chronic kidney disease who has a diagnosis of COPD. The patient has had issues with shortness of breath. She complains of shortness of breath lying flat suggesting of orthopnea. The patient also describes symptoms of shortness of breath waking up suggesting of pressure small nocturnal dyspnea. She does take diuretics and recently she has had to increase her Lasix to be able to help her with those symptoms. The patient also was given diagnosis of COPD. I did look at her PFTs that she had in January 2023 without any evidence of obstruction although she does have a mild restriction an a mild diffusion impairment. During the office visit we did go for a 6 minutes walk test. The patient did desaturate down to 93% but did not qualify for oxygen she does have a rescue inhaler but she does not see any significant improvement. At this point she may and may not have obstructive airway disease will go ahead and give her any longer acting inhaler to see if we can provide her some relief with breathing. However rest after a month she does not see relief she can stop the inhaler. Will also request an overnight oximetry to see if she needs oxygen at nighttime. And the patient will continue with rescue inhaler as needed. The patient also had a CT scan of the chest done back in 2019 which demonstrated areas of ground-glass opacities of unclear etiology. Indeed pneumonitis could be also resulting in some shortness of breath. Will plan to repeat her chest x-ray to assess for any active process. 09/14/2023 the patient is here for pulmonary the patient is still distant productive cough. The mucus is whitish in color. Moderate severity. She does have issues with urinary incontinence specially when she is coughing so therefore makes it very hard for her. We did get a sputum culture in the office consent to the laboratory for further analysis. The patient also states that she does cough while eating therefore she may have a component of microaspiration. She has been under Bevespi inhaler but has not been very helpful for her. We talked about considering adding inhaled corticosteroid to help her with the chronic bronchitis component. We did review her last chest x-ray that she had back in the fall demonstrating some interstitial changes. Her daughter is with her. They are concerned there may be a familial component. Because her daughter is also having respiratory issues and her sister also had respiratory issues. At this point will going to start her on azithromycin for her chronic bronchitis. She will take it 3 times a week. I did encourage her to get an EKG after starting the medication to make sure that her cardiac intervals are within normal limits. She will continue taking the medication for 6-8 weeks. Will follow-up afterwards. If she continues to have symptoms she can always call we can add an inhaled corticosteroid to her regimen. In the meantime we did send sputum culture and will wait for the results. As far as chest PT will provide her with an Acapella valve for her to be able to cough her secretions easier. 11/26/2023 the patient is here for a pulmonary follow-up visit. Recently she was hospitalized at [facility]. Apparently she was volume overloaded was treated for heart failure. In addition to that she was treated for COPD exacerbation. While she was there she did have a CTA back on 11/09/2023 which was personally by me. She had subcentimeter pulmonary nodules in addition to other areas of atelectasis. The patient also had an echocardiogram demonstrating moderate diastolic dysfunction. Explained her that that likely resulted in congestive heart failure. Currently she is monitoring closely her weight on a daily basis. She does have protocol she gained some weight call her doctor. She is also on diuretics which is reassuring. Overall she has doing a lot better with her salt intake. Reason why she is doing okay. We did go for brief walking oximetry the patient did desaturate down to the low 90s but she did not qualify for oxygen. She was supposed to have an overnight oximetry but she never had it. I will reorder this time will call her daughter. 05/30/2024 the patient is here for a pulmonary follow-up visit. The patient overall has been doing okay. She has been complaining of worsening cough for the last 2 weeks. Positive sick contacts. She is also having some dyspnea on exertion. The patient also has shortness of breath and she wakes up at nighttime. She did have an overnight oximetry back in December that demonstrates significant hypoxia. I believe the patient did not want have any oxygen. Will go ahead and repeat the oxygen test if she does again requalify for oxygen at this point will emphasize the need for the oxygen. I am hopeful that she would be agreeable to it. The patient does continue with respiratory medicine but does not feel like the Bevespi is helping. She does not want to do any powder inhalers will switch over to Breztri. The patient will continue to use the Breztri 2 puffs twice a day. The patient also start a course of antibiotics treated for a bout of bronchitis specially with sick contacts. If the patient is no better she will call for an earlier assessment. Also to note she had a CT scan of the chest back in 11/21/2023 [facility] which I personally reviewed. The patient on subcentimeter pulmonary nodules that are stable. She also has some areas of mosaic pattern suggesting small airways disease. Otherwise the patient is without any other complaints. 10/03/2024 the patient is here for a pulmonary follow-up visit. She blue. He was briefly admitted to [facility]. Subsequently discharged. She has been coughing now for the last few weeks. Having some chest tightness and chest congestion. She has been using her rescue inhaler also her rescue inhaler often. Still only partial relief. She does have significant rhonchi and wheezing on exam. Will go ahead and treated with doxycycline for postviral bacterial lower respiratory infection. And also she will need some prednisone. I will give her low dose because of she her diabetes. Although if she continues to have symptoms she can always call and we can send or higher dose. She needs a nebulizer we did provide her with a nebulizer treatment in the office with Rolan and she did very well and open up her lungs nicely. I did request a nebulizer for her. Unfortunately we did not have any nebulizers on hand. Will follow-up in 3 months. If she has any worsening symptoms she will call for an earlier assessment. In the meantime the patient continues use the oxygen at nighttime. The oxygen therapy has been affecting beneficial. 01/02/2025 the patient is here for pulmonary follow-up visit. Since we last spoke back in October she was having some left-sided chest discomfort. She went to [facility] which she had a V/Q scan demonstrating high suspicion for PE. She was placed on Eliquis. She could not get a CTA because of her kidneys. Since she has been on the Eliquis she has complained about feeling dizzy and vertiginous. She has also had had low blood pressure. She has also been anemic. She went back to the hospital early December when she had a CTA demonstrating no evidence of any thromboembolic disease. This point hard to compare but it is overall reassuring that her clots if there were there were gone. Her D-dimer had been elevated D-dimer now is normalized also reassuring. The patient is wondering if she needs to be on the medications specially his causing adverse effects of dizziness. But she is also hypotensive and her blood pressure medications the been adjusted and the patient is also anemic. Last hemoglobin at least at [facility] was down to about 8.4. Will go ahead and repeat her hemoglobin at this time since indeed if she is anemic she may need a transfusion. She can try some meclizine as needed. As far as the Eliquis she can try decreasing the dose to 0.5 mg twice a day because is still too early to stop it. For an unprovoked clot. If she does come off the Eliquis because not been able to tolerated or significant anemia she would need to follow the D-dimer is closely. [facility] Medical History (Updated 01/02/25 @ 21:28 by Carl Osman MD) Pulmonary embolism on left Chest discomfort Anemia Nocturnal hypoxia Pulmonary nodule COPD (chronic obstructive pulmonary disease) CHF (congestive heart failure) Dyspnea Social History Patient Tobacco Use Status: Never used Tobacco Review of Systems Const Reports fatigue, Denies fever(s), Reports headache(s) and Reports malaise Eyes Denies change in vision ENT Reports vertigo, Reports dizziness, Reports headache(s) and Reports nasal congestion Card Reports chest pain, Reports leg edema and Reports dyspnea on exertion Resp Reports cough, Reports dyspnea on exertion and Reports wheezing GI Denies abdominal pain Musc Reports abnormal gait and Reports limited range of motion Skin/Breast Denies rash Neuro Reports abnormal gait, Reports vertigo, Reports dizziness and Reports headache(s) Endo Reports fatigue Robert/Lymph Denies lymphadenopathy Aller/Immun Reports wheezing Physical Exam Vital Signs: Last Vital Signs Pulse 84 01/02/25 15:39 BP 90/46 L 01/02/25 15:39 Pulse Ox 97 01/02/25 15:39 Oxygen Delivery Method Room Air 01/02/25 15:39 Const General: cooperative and tired appearing HEENT Head: Yes normocephalic Eyes Conjunctivae: conjunctival abnormal bilateral pallor Neck Neck: Yes supple Chest Chest palpation & inspection: normal inspection of the chest Resp Effort & Inspection: normal respiratory effort and prolonged expiratory phase Auscultation: no rales, rhonchi, wheezes and diminished lung sounds Cardio Rate: regular rate Rhythm: regular rhythm Heart sounds: S1 normal heart sound present and S2 normal heart sound present GI Palpation (GI): Soft to palpation Skin General skin exam: no rashes or lesions noted Extrem General: No clubbing, No cyanosis and Yes edema Assessment & Plan Assessment & Plan (1) COPD (chronic obstructive pulmonary disease): Comment: no definitive obstruction on recent PFTs Code(s): J44.9 - Chronic obstructive pulmonary disease, unspecified Category: Medical Qualifiers: COPD type: COPD with acute exacerbation Qualified Code(s): J44.1 - Chronic obstructive pulmonary disease with (acute) exacerbation (2) Pulmonary nodule: Code(s): R91.1 - Solitary pulmonary nodule Category: Medical (3) CHF (congestive heart failure): Code(s): I50.9 - Heart failure, unspecified Category: Medical Qualifiers: Heart failure chronicity: chronic Heart failure type: systolic Qualified Code(s): I50.22 - Chronic systolic (congestive) heart failure (4) Dyspnea: Code(s): R06.00 - Dyspnea, unspecified Category: Medical Qualifiers: Dyspnea type: dyspnea on exertion Qualified Code(s): R06.09 - Other forms of dyspnea (5) Nocturnal hypoxia: Code(s): G47.34 - Idiopathic sleep related nonobstructive alveolar hypoventilation Category: Medical (6) Anemia: Code(s): D64.9 - Anemia, unspecified Category: Medical Qualifiers: Anemia type: iron deficiency Iron deficiency anemia type: other iron deficiency Qualified Code(s): D50.8 - Other iron deficiency anemias (7) Chest discomfort: Code(s): R07.89 - Other chest pain Category: Medical (8) Hypotension: Code(s): I95.9 - Hypotension, unspecified Category: Medical Qualifiers: Hypotension type: unspecified hypotension type Qualified Code(s): I95.9 - Hypotension, unspecified (9) Pulmonary embolism on left: Code(s): I26.99 - Other pulmonary embolism without acute cor pulmonale Category: Medical Plan Bloodwork->CBC did come back with Hb 7.0. Called pt and will be going to the [place] [facility] In view of the Anemia, will likely have to hold the Eliquis while addressing the hb loss. Likely GI bleed. CTA 12/01/2024 was reassuring without any evidence of PE. Ddimer will need to be followed while off the Eliquis continue Breztri MASOUD continue oxygen supplementation MASOUD as needed F/U 3 months Orders: Orders Complete Blood Count Auto Diff Today D64.9 - Anemia, unspecified Basic Metabolic Panel Today D64.9 - Anemia, unspecified Type and Screen Today D64.9 - Anemia, unspecified Troponin-I High Sensitivity Today R07.89 - Other chest pain Medications: New meclizine 12.5 mg PO BID PRN 30 tabs 1RF dizziness 14 days doxycycline monohydrate 100 mg PO BID 28 tabs 0RF 14 days Coding Level of Care Code Est Pt Level 5 ([id number]) Complex EM visit Add On G2211 Diagnoses Chronic obstructive pulmonary disease with acute exacerbation J44.1 COPD type: COPD with acute exacerbation Pulmonary nodule R91.1 Chronic systolic congestive heart failure I50.22 Heart failure chronicity: chronic Heart failure type: systolic Dyspnea on exertion R06.09 Dyspnea type: dyspnea on exertion Nocturnal hypoxia G47.34 Other iron deficiency anemia D50.8 Anemia type: iron deficiency Iron deficiency anemia type: other iron deficiency Chest discomfort R07.89 Hypotension, unspecified hypotension type I95.9 Hypotension type: unspecified hypotension type Pulmonary embolism on left I26.99 Time Spent (min) 60
[2025-01-02 15:39] VITALS: BP 90/46; PULSE 84; O2SAT 97
== END 2025-01-02 16:20 | disposition home or self-care (01) ==
LOC: HO.HPS 15:36
PROVIDERS: PCP Internal Medicine; Visit Provider Hospitalist
DX: J44.1 Chronic obstructive pulmonary disease with (acute) exacerbation (principal); R91.1 Solitary pulmonary nodule; I50.22 Chronic systolic (congestive) heart failure; R06.09 Other forms of dyspnea; G47.34 Idiopathic sleep related nonobstructive alveolar hypoventilation; D50.8 Other iron deficiency anemias; R07.89 Other chest pain; I95.9 Hypotension, unspecified; I26.99 Other pulmonary embolism without acute cor pulmonale
CPT/HCPCS: 99215